=== PATIENT | male | born 1950 | race Caucasian/White ===

== ENCOUNTER 2016-12-08 13:39 | Inpatient (IN) | payer MEDICARE, OTHER ==
[~2016-12-08] VITALS: Ht 177.8 cm; Wt 118.4 kg
[~2016-12-08 13:39] MED LIST: BICALUTAMIDE50 MG PO; BP PILL; COMBIVENT1 AR1 IH; DELTASONE10 MG PO; DOXYCYCLINE100 M3 PO; GLIPIZIDE XL5 MG PO; GLIPIZIDE10 MG PO; HUMALOG100 U/ML SC; HYDROCHLOROTHIA25 M1 PO; HYDROCODONE BIT1 T11 PO; HYZAAR 12.5 MG-1 TAB PO; LANTUS100 U/ML SC; LIPITOR40 MG PO; LISINOPRIL10 M1 PO; LOPRESSOR50 MG PO; LOSARTAN POTASS1 TA9 PO; METFORMIN1000 MG PO; MOTRIN800 MG PO; NORVASC10 MG PO; OXYGEN NAS; PREDNISONE10 MG PO; PROAIR HFA0.09 MG/AC INH; SPIRIVA -- 3018 MCG INH; SUGAR PILL; SYMBICORT1 AE1 INH; VENTOLIN 02.5 MG/3 M INH; VIBRA-TAB100 M1 PO; XOPENEX0.63 MG NEB; ZITHROMAX Z-PA250 MG PO; ZYRTEC10 M1 PO; [UNRECOGNIZED DRUG - OTHER] DEVI; [UNRECOGNIZED DRUG - SUPPLY] DEVI
[2016-12-08 13:41] VITALS: BP 186/82
[2016-12-08 14:23] LABS: HEMATOCRIT 37.5 % (42.0-52.0); HEMOGLOBIN 12.6 g/dl (14.0-18.0); MEAN CELL VOLUME 84.5 fl (80.0-94.0); MEAN CORPUSCULAR HGB 28.4 pg (27.0-31.0); MEAN CORPUSCULAR HGB CONC 33.6 g/dl (33.0-37.0); MEAN PLATELET VOLUME 11.4 fl (9.6-12.3); PLATELET COUNT AUTOMATED 219 10*3/uL (130-400); RED BLOOD COUNT 4.44 10*6/uL (4.50-5.90); RED CELL DISTRI WIDTH 12.7 % (0-14.5); WHITE BLOOD COUNT 19.3 10*3/uL (4.8-10.8)
[2016-12-08 14:41] LABS: ALBUMIN 3.3 gm/dl (3.1-4.5); ALKALINE PHOSPHATASE 88 U/L (45-117); BILIRUBIN, TOTAL 0.5 mg/dl (0.2-1.0); BUN 13 mg/dl (7-24); CARBON DIOXIDE 30 mmol/L (21-32); CHLORIDE 89 mmol/L (98-107); EST GLOM FILT AFRICAN AMERICAN > 60 ml/min; GLUCOSE 345 mg/dL (65-99); MAGNESIUM 1.9 mg/dL (1.5-2.1); POTASSIUM 4.4 mmol/L (3.5-5.1); SGOT/AST 9 IU/L (3-35); SGPT/ALT 16 U/L (12-78); SODIUM 131 mmol/L (136-145); TOTAL PROTEIN 7.5 gm/dL (6.4-8.2)
[2016-12-08 14:43] LABS: TROPONIN I < 0.015 ng/ml (<0.045)
[2016-12-08 15:11] LABS: LYMPHOCYTE # 2.7 10*3/uL (1.3-4.4); MONOCYTE # 1.9 10*3/uL (0.1-1.0); NEUTROPHIL # 14.7 10*3/uL (2.3-7.9); NEUTROPHILS 76 % (47-73); TOTAL CELLS COUNTED 100 #CELLS
[2016-12-08 15:12] LABS: PLATELET SUFFICIENCY NORMAL (NORMAL)
[2016-12-08 15:15] VITALS: BP 154/76
[2016-12-08 15:55] VITALS: BP 127/73
[2016-12-08 16:53] VITALS: BP 153/79
[2016-12-08] MEDS ORDERED: LANTUS100 U/ML SC (17:52)
[2016-12-08 18:27] LABS: CKMB 1.1 ng/ml (0.5-3.6); CPK 107 U/L (39-308)
[2016-12-08 18:28] LABS: TROPONIN I < 0.015 ng/ml (<0.045)
[2016-12-08 20:00] VITALS: BP 153/74
[2016-12-09] VITALS: BP 170/79
[2016-12-09 00:26] LABS: CKMB 1.1 ng/ml (0.5-3.6); CPK 121 U/L (39-308)
[2016-12-09 00:37] LABS: TROPONIN I < 0.015 ng/ml (<0.045)
[2016-12-09 06:39] LABS: BASO # 0.1 10*3/uL (0.0-0.1); BASO % 0.9 % (0.0-1.0); EOS % 0.1 % (1.0-4.0); HEMATOCRIT 36.9 % (42.0-52.0); IG # 0.3 10*3/uL (0.0-0.1); LYMPH % 6.5 % (27.0-41.0); MEAN CELL VOLUME 86.4 fl (80.0-94.0); MEAN CORPUSCULAR HGB 28.1 pg (27.0-31.0); MEAN CORPUSCULAR HGB CONC 32.5 g/dl (33.0-37.0); MEAN PLATELET VOLUME 11.6 fl (9.6-12.3); MONO # 0.5 10*3/uL (0.1-1.0); MONO % 3.2 % (3.0-9.0); NEUT % 87.4 % (47.0-73.0); PLATELET COUNT AUTOMATED 213 10*3/uL (130-400); RED BLOOD COUNT 4.27 10*6/uL (4.50-5.90); RED CELL DISTRI WIDTH 12.5 % (0-14.5); WHITE BLOOD COUNT 14.9 10*3/uL (4.8-10.8)
[2016-12-09 06:47] LABS: CKMB 1.6 ng/ml (0.5-3.6); CPK 134 U/L (39-308)
[2016-12-09 06:59] LABS: TROPONIN I < 0.015 ng/ml (<0.045)
[2016-12-09 07:02] LABS: BUN 14 mg/dl (7-24); CARBON DIOXIDE 24 mmol/L (21-32); CHLORIDE 95 mmol/L (98-107); EST GLOM FILT AFRICAN AMERICAN > 60 ml/min; GLUCOSE 394 mg/dL (65-99); MAGNESIUM 2.1 mg/dL (1.5-2.1); PHOSPHOROUS 3.2 mg/dL (2.5-4.9); POTASSIUM 4.6 mmol/L (3.5-5.1); SODIUM 135 mmol/L (136-145)
[2016-12-09 07:05] LABS: INTERNATIONAL NORM RATIO 1.1 (2.0-3.5); PROTHROMBIN TIME 11.2 SECONDS (9.0-12.4)
[2016-12-09 12:00] VITALS: BP 136/66
[2016-12-09 16:00] VITALS: BP 168/80
[2016-12-09 20:00] VITALS: BP 158/66
[2016-12-10] VITALS: BP 160/73
[2016-12-10 08:00] VITALS: BP 158/76
[2016-12-10] MEDS ORDERED: OXYGEN NAS (10:35)
[2016-12-10] MEDS ORDERED: PREDNISONE50 MG PO (11:43)
[2016-12-10] MEDS ORDERED: LEVAQUIN500 M2 PO (11:43)
[2016-12-10 12:00] VITALS: BP 142/82
== END 2016-12-10 12:45 | disposition home or self-care (01) | DRG 871 ==
LOC: ED 13:39 → 4E 15:42 → EDHOLD 15:42 → 4E 16:32
PROVIDERS: Internal Medicine; Nurse Practitioner Family
DX: A41.9 Sepsis, unspecified organism (principal); J96.01 Acute respiratory failure with hypoxia; J18.9 Pneumonia, unspecified organism; J44.1 Chronic obstructive pulmonary disease with (acute) exacerbation; E87.1 Hypo-osmolality and hyponatremia; R65.20 Severe sepsis without septic shock; E78.5 Hyperlipidemia, unspecified; Z87.891 Personal history of nicotine dependence; Z82.49 Family history of ischemic heart disease and other diseases of the circulatory system; Z88.0 Allergy status to penicillin; I16.0 Hypertensive urgency; E11.65 Type 2 diabetes mellitus with hyperglycemia

== ENCOUNTER 2016-12-13 03:24 | Inpatient (IN) | payer MEDICARE, OTHER ==
[~2016-12-13] VITALS: Ht 177.8 cm; Wt 113.9 kg
[2016-12-13] VITALS (15 sets, daily range): BP systolic 131–187; BP diastolic 67–108
--- NOTE | ~2016-12-13 | EKG ---
[place], [place] ELECTROCARDIOGRAM REPORT NAME: BEV JONES UNIT #: [id number] ROOM: 425 DOCTOR: SARAY SHEFFIELD MD BIRTHDATE: [birth year] DOS: 12/13/2016 TIME: 0458 hours. FINDINGS: 1. Sinus rhythm at rate of 85. 2. Nonspecific T-wave flattening. 3. Abnormal EKG. SARAY SHEFFIELD MD CM:EKGRPT:ELECTROCARDIOGRAM REPORT 1935 09 SARAY SHEFFIELD MD
--- NOTE | ~2016-12-13 | O ---
[place], [place] OPERATIVE NOTE NAME: [id number] UNIT #: [id number] ROOM: 425 DOCTOR: MORTEZA DEVINE MD BIRTHDATE: [birth year] DOS: 12/13/2016 PREOPERATIVE DIAGNOSIS: Acute appendicitis. POSTOPERATIVE DIAGNOSIS: Acute appendicitis. PROCEDURE: Laparoscopic appendectomy. SURGEON: Morteza Devine MD SESSIONS CLERK: ASHLEY. ANESTHESIA: General with endotracheal intubation. INDICATIONS: This is a 66-year-old gentleman who was admitted from the Emergency Room with a history of right lower quadrant abdominal pain. A CAT scan revealed acute appendicitis. It was decided to take the patient to the operating room for a laparoscopic, possible open appendectomy. The procedure and its complications were explained to the patient in detail preoperatively. Complications that were discussed included but were not limited to bleeding, infection, hematoma/seroma/abscess formation, damage to underlying vital structures and incisional hernia formation. He agreed to proceed. DESCRIPTION OF PROCEDURE: After identifying the patient, the patient was brought to the operating suite and laid in the supine position. After induction of general anesthesia, a Dimas catheter was inserted into the urinary bladder and the left upper extremity was stuck to the patient's side. Parts were then painted and draped in the usual sterile fashion. A time-out procedure was called, an umbilical incision of approximately 10 mm was made. The skin and the subcutaneous tissue were incised. The umbilical fascia was freed off from preperitoneal fat and 2 stay sutures were taken with 0 Vicryl. The peritoneum was entered and with the help of direct vision, a left lower quadrant incision of 10 mm and 5 mm incisions were made in the suprapubic region and appropriate size ports were introduced. The patient was placed in a Trendelenburg, right side up position. The appendix was found to be acutely inflamed. It was held up with the help of an Endo Ada forceps and the mesoappendix as well as the base of the appendix was stapled across with the help of an Endo-PENNIE vascular stapler. The appendix was then placed in the EndoCatch bag and removed from the peritoneal cavity and sent for histopathological diagnosis. Hemostasis was confirmed and copious amounts of saline was used for irrigation in the right lower quadrant to suck out all the blood and the fluid. After hemostasis was confirmed, the suprapubic and the left lower quadrant ports were removed, and there was no bleeding seen. The umbilical port was also removed and additional [id number] stitch was taken with the help of 0 Vicryl to close the umbilical fascial defect. The stay sutures were tied together as well. At this point, local anesthesia (1% plain lidocaine was injected). All the skin edges were then approximated with the help of 4-0 Vicryl in a subcuticular running fashion. Dressings were placed. Dimas catheter was removed. The patient was extubated uneventfully and brought back to the recovery room in stable fashion. There were no complications. Dr. Morteza Devine, the attending surgeon, was present [place], [place] OPERATIVE NOTE NAME: BEV JONES UNIT #: [id number] ROOM: [facility] DOCTOR: MORTEZA DEVINE MD BIRTHDATE: [birth year] throughout the operating case. Morteza Devine MD CM:OPRECORD:OPERATIVE NOTE [id number] MORTEZA DEVINE MD 12/13/16 1012 interface
[~2016-12-13 03:24] MED LIST changes: +LEVAQUIN500 M2 PO; +PREDNISONE50 MG PO
[2016-12-13 04:12] LABS: HEMATOCRIT 40.9 % (42.0-52.0); HEMOGLOBIN 13.6 g/dl (14.0-18.0); MEAN CELL VOLUME 84.9 fl (80.0-94.0); MEAN CORPUSCULAR HGB 28.2 pg (27.0-31.0); MEAN CORPUSCULAR HGB CONC 33.3 g/dl (33.0-37.0); MEAN PLATELET VOLUME 10.4 fl (9.6-12.3); NUCLEATED RED BLOOD CELL 0.1 10*3/uL (0.0-0.0); NUCLEATED RED BLOOD CELL 0.2 % (0.0-0.0); PLATELET COUNT AUTOMATED 284 10*3/uL (130-400); RED BLOOD COUNT 4.82 10*6/uL (4.50-5.90); RED CELL DISTRI WIDTH 12.7 % (0-14.5); WHITE BLOOD COUNT 25.4 10*3/uL (4.8-10.8)
[2016-12-13 04:21] LABS: INTERNATIONAL NORM RATIO 1.1 (2.0-3.5); PROTHROMBIN TIME 11.4 SECONDS (9.0-12.4)
[2016-12-13 04:29] LABS: ALBUMIN 3.3 gm/dl (3.1-4.5); ALKALINE PHOSPHATASE 74 U/L (45-117); BILIRUBIN, TOTAL 0.3 mg/dl (0.2-1.0); BUN 20 mg/dl (7-24); CARBON DIOXIDE 32 mmol/L (21-32); CHLORIDE 94 mmol/L (98-107); EST GLOM FILT AFRICAN AMERICAN > 60 ml/min; GLUCOSE 191 mg/dL (65-99); POTASSIUM 3.3 mmol/L (3.5-5.1); SGOT/AST 16 IU/L (3-35); SGPT/ALT 38 U/L (12-78); SODIUM 138 mmol/L (136-145); TOTAL PROTEIN 6.9 gm/dL (6.4-8.2)
[2016-12-13 04:34] LABS: ATYPICAL LYMPHS 1 % (0-0); EOSINOPHIL # 0.8 10*3/uL (0-0.4); EOSINOPHILS 3 % (1-4); LYMPHOCYTE # 4.1 10*3/uL (1.3-4.4); METAMYELOCYTES 1 % (0-0); MYELOCYTES 1 % (0-0); NEUTROPHILS 71 % (47-73); PLATELET SUFFICIENCY NORMAL (NORMAL); POLYCHROMASIA SLIGHT; TOTAL CELLS COUNTED 100 #CELLS
[2016-12-13 04:35] LABS: TROPONIN I < 0.015 ng/ml (<0.045)
[2016-12-13 05:13] LABS: BILIRUBIN NEGATIVE (NEGATIVE); BLOOD NEGATIVE (NEGATIVE); CLARITY CLEAR (CLEAR); COLOR YELLOW (YELLOW); GLUCOSE NEGATIVE (NEGATIVE); KETONE NEGATIVE (NEGATIVE); LEUKO ESTERASE NEGATIVE (NEGATIVE); NITRITE NEGATIVE (NEGATIVE); PH 6.5 (5.0-9.0); PROTEIN NEGATIVE (NEGATIVE); SPECIFIC GRAVITY <= 1.005 (1.005-1.030); UROBILINOGEN 0.2 E.U./dl (0.2-1.0)
[2016-12-13 05:20] LABS: BACTERIA TRACE; EPITHELIAL CELLS 0-2; URINE REFLEX COMMENT NO (NO)
[2016-12-14] VITALS: BP 145/80
[2016-12-14 06:15] LABS: HEMATOCRIT 40.3 % (42.0-52.0); HEMOGLOBIN 13.1 g/dl (14.0-18.0); MEAN CELL VOLUME 87.4 fl (80.0-94.0); MEAN CORPUSCULAR HGB 28.4 pg (27.0-31.0); MEAN CORPUSCULAR HGB CONC 32.5 g/dl (33.0-37.0); MEAN PLATELET VOLUME 10.2 fl (9.6-12.3); PLATELET COUNT AUTOMATED 282 10*3/uL (130-400); RED BLOOD COUNT 4.61 10*6/uL (4.50-5.90); RED CELL DISTRI WIDTH 13.2 % (0-14.5); WHITE BLOOD COUNT 19.5 10*3/uL (4.8-10.8)
[2016-12-14 06:50] LABS: BUN 11 mg/dl (7-24); CARBON DIOXIDE 33 mmol/L (21-32); CHLORIDE 101 mmol/L (98-107); EST GLOM FILT AFRICAN AMERICAN > 60 ml/min; GLUCOSE 80 mg/dL (65-99); POTASSIUM 3.7 mmol/L (3.5-5.1); SODIUM 142 mmol/L (136-145)
[2016-12-14 07:15] LABS: EOSINOPHIL # 0.6 10*3/uL (0-0.4); EOSINOPHILS 3 % (1-4); LYMPHOCYTE # 4.1 10*3/uL (1.3-4.4); METAMYELOCYTES 1 % (0-0); MONOCYTE # 0.4 10*3/uL (0.1-1.0); MYELOCYTES 4 % (0-0); NEUTROPHIL # 13.5 10*3/uL (2.3-7.9); NEUTROPHILS 69 % (47-73); PLATELET SUFFICIENCY NORMAL (NORMAL); TOTAL CELLS COUNTED 100 #CELLS
[2016-12-14 08:00] VITALS: BP 162/74
[2016-12-14 12:00] VITALS: BP 173/80
[2016-12-14] MEDS ORDERED: PERCOCET 325 MG1 TA2 PO (12:21)
[2016-12-14] MEDS ORDERED: FLAGYL500 MG PO (12:23)
[2016-12-14] MEDS ORDERED: CIPRO500 MG PO (12:23)
== END 2016-12-14 13:28 | disposition home or self-care (01) | DRG 854 ==
LOC: ED 03:24 → 4E 06:26 → EDHOLD 06:26 → 4E 06:36
PROVIDERS: Emergency Medicine Emergency Medical Services; Internal Medicine
PROC: 0DTJ4ZZ Resection of Appendix, Percutaneous Endoscopic Approach (ICD-10-PCS; principal; 2016-12-13)
DX: A41.9 Sepsis, unspecified organism (principal); J96.10 Chronic respiratory failure, unspecified whether with hypoxia or hypercapnia; E11.65 Type 2 diabetes mellitus with hyperglycemia; J44.1 Chronic obstructive pulmonary disease with (acute) exacerbation; K35.80 Unspecified acute appendicitis; E87.6 Hypokalemia; I10 Essential (primary) hypertension; M19.91 Primary osteoarthritis, unspecified site; E78.5 Hyperlipidemia, unspecified; Z87.891 Personal history of nicotine dependence; Z82.5 Family history of asthma and other chronic lower respiratory diseases; Z82.49 Family history of ischemic heart disease and other diseases of the circulatory system; Z81.1 Family history of alcohol abuse and dependence; Z88.0 Allergy status to penicillin; Z83.3 Family history of diabetes mellitus; Z79.4 Long term (current) use of insulin; Z79.2 Long term (current) use of antibiotics; Z79.899 Other long term (current) drug therapy; Z87.01 Personal history of pneumonia (recurrent)

== ENCOUNTER 2017-03-08 13:26 | Emergency (ER) | payer MEDICARE, OTHER ==
[~2017-03-08] VITALS: Ht 177.8 cm; Wt 117.9 kg
[~2017-03-08 13:26] MED LIST changes: +CIPRO500 MG PO; +FLAGYL500 MG PO; +PERCOCET 325 MG1 TA2 PO
[2017-03-08] MEDS ORDERED: VITAMIN D1000 IU PO (13:34)
[2017-03-08 14:28] LABS: BASO # 0.1 10*3/uL (0.0-0.1); BASO % 1.2 % (0.0-1.0); EOS # 0.5 10*3/uL (0.0-0.4); EOS % 5.1 % (1.0-4.0); HEMATOCRIT 41.8 % (42.0-52.0); LYMPH # 2.2 10*3/uL (1.3-4.4); LYMPH % 21.4 % (27.0-41.0); MEAN CELL VOLUME 84.8 fl (80.0-94.0); MEAN CORPUSCULAR HGB 28.4 pg (27.0-31.0); MEAN CORPUSCULAR HGB CONC 33.5 g/dl (33.0-37.0); MEAN PLATELET VOLUME 11.5 fl (9.6-12.3); MONO # 0.9 10*3/uL (0.1-1.0); MONO % 8.9 % (3.0-9.0); NEUT # 6.6 10*3/uL (2.3-7.9); PLATELET COUNT AUTOMATED 166 10*3/uL (130-400); RED BLOOD COUNT 4.93 10*6/uL (4.50-5.90); RED CELL DISTRI WIDTH 13.5 % (0-14.5); WHITE BLOOD COUNT 10.5 10*3/uL (4.8-10.8)
[2017-03-08 14:35] LABS: PROTHROMBIN TIME 10.5 SECONDS (9.0-12.4)
[2017-03-08 14:49] LABS: ALBUMIN 3.6 gm/dl (3.1-4.5); ALKALINE PHOSPHATASE 76 U/L (45-117); BILIRUBIN, TOTAL 0.2 mg/dl (0.2-1.0); BUN 13 mg/dl (7-24); CARBON DIOXIDE 26 mmol/L (21-32); CHLORIDE 97 mmol/L (98-107); CPK 110 U/L (39-308); EST GLOM FILT AFRICAN AMERICAN > 60 ml/min; GLUCOSE 195 mg/dL (65-99); MAGNESIUM 1.7 mg/dL (1.5-2.1); POTASSIUM 3.7 mmol/L (3.5-5.1); SGOT/AST 20 IU/L (3-35); SGPT/ALT 37 U/L (12-78); SODIUM 134 mmol/L (136-145); TOTAL PROTEIN 7.3 gm/dL (6.4-8.2)
[2017-03-08 14:50] LABS: CKMB 1.7 ng/ml (0.5-3.6); TROPONIN I < 0.015 ng/ml (<0.045)
[2017-03-08] MEDS ORDERED: LEVAQUIN750 M1 PO (15:33)
[2017-03-08] MEDS ORDERED: PREDNISONE10 MG PO (15:33)
[2017-03-08 16:25] LABS: LA>2 REFLEX 2 HR DRAW NOW
== END 2017-03-08 16:01 | disposition home or self-care (01) ==
LOC: ED 13:26
PROVIDERS: Internal Medicine
DX: J20.9 Acute bronchitis, unspecified (principal); I10 Essential (primary) hypertension; E11.9 Type 2 diabetes mellitus without complications; J44.9 Chronic obstructive pulmonary disease, unspecified; E78.5 Hyperlipidemia, unspecified; M19.90 Unspecified osteoarthritis, unspecified site; Z88.0 Allergy status to penicillin; Z79.899 Other long term (current) drug therapy; Z79.4 Long term (current) use of insulin; Z87.891 Personal history of nicotine dependence

== ENCOUNTER → 2017-04-13 | Outpatient (CLI) | payer MEDICARE, OTHER ==
[~2017-04-13] MED LIST changes: +LEVAQUIN750 M1 PO; +VITAMIN D1000 IU PO
== END | disposition home or self-care (01) ==
LOC: CT 10:40
DX: C61 Malignant neoplasm of prostate (principal)

== ENCOUNTER → 2017-04-15 | Outpatient (CLI) | payer MEDICARE, OTHER | END | disposition home or self-care (01) | LOC: NM 09:53 | DX: C61 Malignant neoplasm of prostate (principal); M19.012 Primary osteoarthritis, left shoulder; M19.011 Primary osteoarthritis, right shoulder; M17.0 Bilateral primary osteoarthritis of knee; M19.072 Primary osteoarthritis, left ankle and foot; M19.071 Primary osteoarthritis, right ankle and foot ==

== ENCOUNTER 2017-04-30 17:32 | Emergency (ER) | payer MEDICARE, OTHER ==
[~2017-04-30] VITALS: Ht 177.8 cm; Wt 117.9 kg
--- NOTE | ~2017-04-30 | EKG ---
[place], [place] ELECTROCARDIOGRAM REPORT NAME: BEV JONES UNIT #: [id number] ROOM: DOCTOR: SULMA DAVID MD,MARY BIRTHDATE: [birth year] DOS: 04/30/2017 DATE: 04/30/2017 at 1755 minutes. The underlying rhythm was noted as normal sinus rhythm for the patient with heart rate of 99 beats per minute. Nonspecific ST-T changes noted mainly in the V1, V2 and V3. There were no changes of acute ischemia noted. MARY OZUNA MD CM:EKGRPT:ELECTROCARDIOGRAM REPORT [id number] 0629 MARY DAVID MD
[2017-04-30 18:06] LABS: BASO # 0.1 10*3/uL (0.0-0.1); BASO % 1.3 % (0.0-1.0); EOS # 0.4 10*3/uL (0.0-0.4); EOS % 3.8 % (1.0-4.0); HEMATOCRIT 42.2 % (42.0-52.0); HEMOGLOBIN 14.1 g/dl (14.0-18.0); LYMPH # 2.7 10*3/uL (1.3-4.4); LYMPH % 24.5 % (27.0-41.0); MEAN CELL VOLUME 85.8 fl (80.0-94.0); MEAN CORPUSCULAR HGB 28.7 pg (27.0-31.0); MEAN CORPUSCULAR HGB CONC 33.4 g/dl (33.0-37.0); MONO # 0.9 10*3/uL (0.1-1.0); MONO % 8.4 % (3.0-9.0); NEUT # 6.7 10*3/uL (2.3-7.9); NEUT % 61.5 % (47.0-73.0); PLATELET COUNT AUTOMATED 160 10*3/uL (130-400); RED BLOOD COUNT 4.92 10*6/uL (4.50-5.90); RED CELL DISTRI WIDTH 13.3 % (0-14.5); WHITE BLOOD COUNT 10.8 10*3/uL (4.8-10.8)
[2017-04-30 18:21] LABS: ALBUMIN 3.6 gm/dl (3.1-4.5); ALKALINE PHOSPHATASE 73 U/L (45-117); BUN 16 mg/dl (7-24); CHLORIDE 94 mmol/L (98-107); CKMB 1.3 ng/ml (0.5-3.6); CPK 77 U/L (39-308); LIPASE 131 U/L (73-393); MAGNESIUM 1.7 mg/dL (1.5-2.1); POTASSIUM 4.2 mmol/L (3.5-5.1); SGOT/AST 18 IU/L (3-35); SGPT/ALT 35 U/L (12-78); SODIUM 133 mmol/L (136-145); TOTAL PROTEIN 7.1 gm/dL (6.4-8.2)
[2017-04-30 18:22] LABS: TROPONIN I < 0.015 ng/ml (<0.045)
[2017-04-30] MEDS ORDERED: LEVAQUIN750 M1 PO (18:39)
[2017-04-30] MEDS ORDERED: PREDNISONE10 MG PO (18:39)
== END 2017-04-30 19:10 | disposition home or self-care (01) ==
LOC: ED 17:32
PROVIDERS: Emergency Medicine
DX: J44.1 Chronic obstructive pulmonary disease with (acute) exacerbation (principal); E11.9 Type 2 diabetes mellitus without complications; E78.5 Hyperlipidemia, unspecified; I10 Essential (primary) hypertension; M19.90 Unspecified osteoarthritis, unspecified site; Z85.46 Personal history of malignant neoplasm of prostate; Z98.890 Other specified postprocedural states; Z90.49 Acquired absence of other specified parts of digestive tract; Z79.899 Other long term (current) drug therapy; Z88.0 Allergy status to penicillin; Z99.81 Dependence on supplemental oxygen

== ENCOUNTER → 2017-06-04 | Outpatient (CLI) | payer MEDICARE, OTHER | END | disposition home or self-care (01) | LOC: CARD 09:17 | DX: J43.9 Emphysema, unspecified (principal); Z87.891 Personal history of nicotine dependence ==

== ENCOUNTER 2017-07-31 11:23 | Emergency (ER) | payer MEDICARE, OTHER ==
[~2017-07-31] VITALS: Ht 177.8 cm; Wt 117.9 kg
[2017-07-31 12:28] LABS: BASO # 0.1 10*3/uL (0.0-0.1); BASO % 0.8 % (0.0-1.0); EOS # 0.4 10*3/uL (0.0-0.4); HEMATOCRIT 38.5 % (42.0-52.0); LYMPH # 1.9 10*3/uL (1.3-4.4); MEAN CELL VOLUME 84.1 fl (80.0-94.0); MEAN CORPUSCULAR HGB 28.4 pg (27.0-31.0); MEAN CORPUSCULAR HGB CONC 33.8 g/dl (33.0-37.0); MEAN PLATELET VOLUME 10.9 fl (9.6-12.3); MONO % 7.7 % (3.0-9.0); NEUT % 73.2 % (47.0-73.0); PLATELET COUNT AUTOMATED 211 10*3/uL (130-400); RED BLOOD COUNT 4.58 10*6/uL (4.50-5.90); RED CELL DISTRI WIDTH 13.3 % (0-14.5); WHITE BLOOD COUNT 12.3 10*3/uL (4.8-10.8)
[2017-07-31 12:37] LABS: ACT PARTIAL THROMBO TIME 26.1 SECONDS (20.8-31.5)
[2017-07-31 12:44] LABS: ALBUMIN 3.6 gm/dl (3.1-4.5); ALKALINE PHOSPHATASE 83 U/L (45-117); BUN 12 mg/dl (7-24); CHLORIDE 96 mmol/L (98-107); CREATININE 0.92 mg/dL (0.70-1.30); LIPASE 134 U/L (73-393); POTASSIUM 4.2 mmol/L (3.5-5.1); SGOT/AST 20 IU/L (3-35); SGPT/ALT 35 U/L (12-78); SODIUM 131 mmol/L (136-145); TOTAL PROTEIN 7.1 gm/dL (6.4-8.2)
[2017-07-31 12:50] LABS: TROPONIN I < 0.015 ng/ml (<0.045)
[2017-07-31] MEDS ORDERED: ZITHROMAX250 MG PO (13:44)
[2017-07-31] MEDS ORDERED: PREDNISONE10 MG PO (13:44)
== END 2017-07-31 13:48 | disposition home or self-care (01) ==
LOC: ED 11:23
PROVIDERS: Emergency Medicine
DX: J20.9 Acute bronchitis, unspecified (principal); J44.1 Chronic obstructive pulmonary disease with (acute) exacerbation; E11.9 Type 2 diabetes mellitus without complications; I10 Essential (primary) hypertension; M19.90 Unspecified osteoarthritis, unspecified site; Z88.0 Allergy status to penicillin; Z79.899 Other long term (current) drug therapy; Z79.4 Long term (current) use of insulin; E78.5 Hyperlipidemia, unspecified; Z87.891 Personal history of nicotine dependence

== ENCOUNTER 2017-12-14 20:15 | Emergency (ER) | payer MEDICARE, OTHER ==
[~2017-12-14] VITALS: Ht 177.8 cm; Wt 115.2 kg
[~2017-12-14 20:15] MED LIST changes: +ZITHROMAX250 MG PO
== END 2017-12-14 22:30 | disposition home or self-care (01) ==
LOC: ED 20:15
DX: S83.91XA Sprain of unspecified site of right knee, initial encounter (principal); Z88.0 Allergy status to penicillin; Z79.899 Other long term (current) drug therapy; Z87.891 Personal history of nicotine dependence; X58.XXXA Exposure to other specified factors, initial encounter; Y93.01 Activity, walking, marching and hiking; Y92.89 Other specified places as the place of occurrence of the external cause; Y99.8 Other external cause status

== ENCOUNTER 2018-02-27 15:21 | Emergency (ER) | payer MEDICARE, OTHER ==
[~2018-02-27] VITALS: Ht 177.8 cm; Wt 117.9 kg
[2018-02-27 15:46] LABS: BASO # 0.1 10*3/uL (0.0-0.1); BASO % 0.9 % (0.0-1.0); EOS # 0.6 10*3/uL (0.0-0.4); EOS % 5.1 % (1.0-4.0); HEMATOCRIT 38.7 % (42.0-52.0); HEMOGLOBIN 12.4 g/dl (14.0-18.0); LYMPH # 2.2 10*3/uL (1.3-4.4); LYMPH % 20.5 % (27.0-41.0); MEAN CELL VOLUME 88.2 fl (80.0-94.0); MEAN CORPUSCULAR HGB 28.2 pg (27.0-31.0); MEAN PLATELET VOLUME 11.3 fl (9.6-12.3); MONO # 1.1 10*3/uL (0.1-1.0); MONO % 9.8 % (3.0-9.0); NEUT # 6.9 10*3/uL (2.3-7.9); NEUT % 63.2 % (47.0-73.0); PLATELET COUNT AUTOMATED 160 10*3/uL (130-400); RED BLOOD COUNT 4.39 10*6/uL (4.50-5.90); RED CELL DISTRI WIDTH 13.7 % (0-14.5); WHITE BLOOD COUNT 10.9 10*3/uL (4.8-10.8)
[2018-02-27 15:55] LABS: ACT PARTIAL THROMBO TIME 22.9 SECONDS (20.8-31.5)
[2018-02-27 16:02] LABS: ALBUMIN 3.5 gm/dl (3.1-4.5); ALKALINE PHOSPHATASE 57 U/L (45-117); BUN 19 mg/dl (7-24); CHLORIDE 99 mmol/L (98-107); CREATININE 0.83 mg/dL (0.70-1.30); LIPASE 114 U/L (73-393); POTASSIUM 3.9 mmol/L (3.5-5.1); SGOT/AST 16 IU/L (3-35); SGPT/ALT 29 U/L (12-78); SODIUM 138 mmol/L (136-145); TOTAL PROTEIN 6.5 gm/dL (6.4-8.2); TROPONIN I < 0.015 ng/ml (<0.045)
[2018-02-27] MEDS ORDERED: ZITHROMAX250 MG PO (16:27)
[2018-02-27] MEDS ORDERED: PREDNISONE10 MG PO (16:27)
== END 2018-02-27 16:37 | disposition home or self-care (01) ==
LOC: ED 15:21
PROVIDERS: Emergency Medicine
DX: J20.9 Acute bronchitis, unspecified (principal); J44.1 Chronic obstructive pulmonary disease with (acute) exacerbation; E11.9 Type 2 diabetes mellitus without complications; E78.5 Hyperlipidemia, unspecified; I10 Essential (primary) hypertension; M19.90 Unspecified osteoarthritis, unspecified site; Z87.891 Personal history of nicotine dependence; Z88.0 Allergy status to penicillin; Z79.899 Other long term (current) drug therapy; Z79.4 Long term (current) use of insulin

== ENCOUNTER 2018-04-22 19:08 | Inpatient (IN) | payer MEDICARE, OTHER ==
[~2018-04-22] VITALS: Ht 177.8 cm; Wt 121.3 kg
--- NOTE | ~2018-04-22 | EKG ---
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
--- NOTE | ~2018-04-22 | EKG ---
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
[~2018-04-22 19:08] MED LIST changes: +LANTUS SOL100 UNIT/1 SC
[2018-04-22 19:16] VITALS: BP 190/79
[2018-04-22 19:47] LABS: BASO # 0.2 10*3/uL (0.0-0.1); BASO % 1.6 % (0.0-1.0); EOS # 0.9 10*3/uL (0.0-0.4); EOS % 8.2 % (1.0-4.0); HEMATOCRIT 40.1 % (42.0-52.0); HEMOGLOBIN 13.1 g/dl (14.0-18.0); LYMPH % 17.5 % (27.0-41.0); MEAN CELL VOLUME 85.3 fl (80.0-94.0); MEAN CORPUSCULAR HGB 27.9 pg (27.0-31.0); MEAN CORPUSCULAR HGB CONC 32.7 g/dl (33.0-37.0); MEAN PLATELET VOLUME 11.3 fl (9.6-12.3); MONO # 0.8 10*3/uL (0.1-1.0); NEUT # 7.4 10*3/uL (2.3-7.9); NEUT % 65.3 % (47.0-73.0); PLATELET COUNT AUTOMATED 212 10*3/uL (130-400); RED CELL DISTRI WIDTH 13.4 % (0-14.5); WHITE BLOOD COUNT 11.3 10*3/uL (4.8-10.8)
[2018-04-22 20:05] LABS: ALBUMIN 3.6 gm/dl (3.1-4.5); ALKALINE PHOSPHATASE 65 U/L (45-117); BUN 11 mg/dl (7-24); CHLORIDE 95 mmol/L (98-107); CREATININE 0.92 mg/dL (0.70-1.30); POTASSIUM 3.9 mmol/L (3.5-5.1); SGOT/AST 21 IU/L (3-35); SGPT/ALT 32 U/L (12-78); SODIUM 133 mmol/L (136-145); TOTAL PROTEIN 6.9 gm/dL (6.4-8.2)
[2018-04-22 20:08] LABS: TROPONIN I < 0.015 ng/ml (<0.045)
[2018-04-22 20:11] VITALS: BP 145/83
[2018-04-23] VITALS: BP 146/89
[2018-04-23 06:17] LABS: BASO # 0.1 10*3/uL (0.0-0.1); BASO % 0.8 % (0.0-1.0); EOS % 0.3 % (1.0-4.0); HEMATOCRIT 40.2 % (42.0-52.0); HEMOGLOBIN 12.8 g/dl (14.0-18.0); LYMPH # 0.9 10*3/uL (1.3-4.4); LYMPH % 7.7 % (27.0-41.0); MEAN CELL VOLUME 87.6 fl (80.0-94.0); MEAN CORPUSCULAR HGB 27.9 pg (27.0-31.0); MEAN CORPUSCULAR HGB CONC 31.8 g/dl (33.0-37.0); MEAN PLATELET VOLUME 11.7 fl (9.6-12.3); MONO # 0.2 10*3/uL (0.1-1.0); MONO % 1.7 % (3.0-9.0); NEUT # 9.8 10*3/uL (2.3-7.9); NEUT % 88.5 % (47.0-73.0); PLATELET COUNT AUTOMATED 200 10*3/uL (130-400); RED BLOOD COUNT 4.59 10*6/uL (4.50-5.90); RED CELL DISTRI WIDTH 13.4 % (0-14.5); WHITE BLOOD COUNT 11.1 10*3/uL (4.8-10.8)
[2018-04-23 06:24] LABS: ACT PARTIAL THROMBO TIME 26.5 SECONDS (20.8-31.5)
[2018-04-23 06:33] LABS: ALBUMIN 3.5 gm/dl (3.1-4.5); BUN 13 mg/dl (7-24); CHLORIDE 95 mmol/L (98-107); POTASSIUM 4.6 mmol/L (3.5-5.1); SODIUM 131 mmol/L (136-145)
[2018-04-23 06:40] LABS: ALKALINE PHOSPHATASE 66 U/L (45-117); CHOLESTEROL 124 mg/dL (<200); CREATININE 0.91 mg/dL (0.70-1.30); HDL CHOLESTEROL 57 mg/dl (40-60); LDL CHOLESTEROL 58 mg/dL (9-159); PHOSPHOROUS 2.7 mg/dL (2.5-4.9); SGOT/AST 13 IU/L (3-35); SGPT/ALT 30 U/L (12-78); THYROID STIM HORMONE (HS) 0.463 uIU/ml (0.358-4.75); TOTAL PROTEIN 6.8 gm/dL (6.4-8.2); TRIGLYCERIDES 46 mg/dl (<150); VLDL CHOLESTEROL 9 mg/dL (6-40)
[2018-04-23 06:59] LABS: VITAMIN D, 25-HYDROXY 23.5 ng/mL (30-100)
[2018-04-23 08:00] VITALS: BP 156/92
[2018-04-23 12:00] VITALS: BP 183/83
[2018-04-23] MEDS ORDERED: GLIPIZIDE5 MG PO (12:07)
[2018-04-23] MEDS ORDERED: DALIRESP500 MC1 PO (12:07)
[2018-04-23] MEDS ORDERED: HUMALOG100 UNIT/1 SQ (14:37)
[2018-04-23 16:00] VITALS: BP 141/63; BP 175/77
[2018-04-23 20:00] VITALS: BP 159/81
[2018-04-23 20:51] VITALS: BP 148/80
[2018-04-24] VITALS: BP 147/83
[2018-04-24 05:55] LABS: BUN 14 mg/dl (7-24); CHLORIDE 91 mmol/L (98-107); CREATININE 0.96 mg/dL (0.70-1.30); POTASSIUM 4.2 mmol/L (3.5-5.1); SODIUM 131 mmol/L (136-145)
[2018-04-24 05:59] LABS: HEMATOCRIT 38.2 % (42.0-52.0); HEMOGLOBIN 12.7 g/dl (14.0-18.0); MEAN CELL VOLUME 85.5 fl (80.0-94.0); MEAN CORPUSCULAR HGB 28.4 pg (27.0-31.0); MEAN CORPUSCULAR HGB CONC 33.2 g/dl (33.0-37.0); MEAN PLATELET VOLUME 11.3 fl (9.6-12.3); PLATELET COUNT AUTOMATED 217 10*3/uL (130-400); RED BLOOD COUNT 4.47 10*6/uL (4.50-5.90); RED CELL DISTRI WIDTH 13.4 % (0-14.5); WHITE BLOOD COUNT 20.1 10*3/uL (4.8-10.8)
[2018-04-24 06:53] LABS: PLATELET SUFFICIENCY NORMAL (NORMAL); TOTAL CELLS COUNTED 100 #CELLS
[2018-04-24 08:00] VITALS: BP 144/88
[2018-04-24 12:00] VITALS: BP 156/73
[2018-04-24 16:00] VITALS: BP 161/79
[2018-04-24 20:00] VITALS: BP 149/85
[2018-04-25 00:31] VITALS: BP 144/73
[2018-04-25 06:25] LABS: BASO % 0.2 % (0.0-1.0); EOS % 0.1 % (1.0-4.0); HEMATOCRIT 40.4 % (42.0-52.0); HEMOGLOBIN 13.2 g/dl (14.0-18.0); LYMPH # 0.9 10*3/uL (1.3-4.4); LYMPH % 5.7 % (27.0-41.0); MEAN CELL VOLUME 86.3 fl (80.0-94.0); MEAN CORPUSCULAR HGB 28.2 pg (27.0-31.0); MEAN CORPUSCULAR HGB CONC 32.7 g/dl (33.0-37.0); MEAN PLATELET VOLUME 11.3 fl (9.6-12.3); MONO # 0.9 10*3/uL (0.1-1.0); MONO % 5.3 % (3.0-9.0); NEUT # 14.3 10*3/uL (2.3-7.9); NEUT % 87.7 % (47.0-73.0); PLATELET COUNT AUTOMATED 220 10*3/uL (130-400); RED BLOOD COUNT 4.68 10*6/uL (4.50-5.90); RED CELL DISTRI WIDTH 13.5 % (0-14.5); WHITE BLOOD COUNT 16.3 10*3/uL (4.8-10.8)
[2018-04-25 06:33] LABS: BUN 16 mg/dl (7-24); CHLORIDE 91 mmol/L (98-107); CREATININE 0.85 mg/dL (0.70-1.30); POTASSIUM 4.3 mmol/L (3.5-5.1); SODIUM 129 mmol/L (136-145)
[2018-04-25 08:00] VITALS: BP 168/86
[2018-04-25 08:25] VITALS: BP 162/78
[2018-04-25] MEDS ORDERED: LEVAQUIN500 M2 PO (09:15)
[2018-04-25] MEDS ORDERED: MUCINEX ER600 MG PO (09:15)
[2018-04-25] MEDS ORDERED: LOPRESSOR25 MG PO (09:15)
[2018-04-25] MEDS ORDERED: PREDNISONE10 MG PO (09:15)
[2018-07-09] MEDS ORDERED: HUMALOG100 UNIT/1 SQ (06:44)
[2018-07-11] MEDS ORDERED: PREDNISONE10 MG PO (09:43)
[2018-07-11] MEDS ORDERED: DOXYCYCLINE100 M3 PO (09:43)
[2018-07-11] MEDS ORDERED: LANTUS SOL100 UNIT/1 SC (09:43)
== END 2018-04-25 09:52 | disposition home or self-care (01) | DRG 871 ==
LOC: ED 19:08 → EDHOLD 20:58 → 5E 21:14
PROVIDERS: Family Medicine; Physician Assistant; Student in an Organized Health Care Education/Training Program
DX: A41.9 Sepsis, unspecified organism (principal); J96.21 Acute and chronic respiratory failure with hypoxia; J18.9 Pneumonia, unspecified organism; J44.0 Chronic obstructive pulmonary disease with (acute) lower respiratory infection; J44.1 Chronic obstructive pulmonary disease with (acute) exacerbation; E87.1 Hypo-osmolality and hyponatremia; D64.9 Anemia, unspecified; E11.65 Type 2 diabetes mellitus with hyperglycemia; J30.2 Other seasonal allergic rhinitis; E55.9 Vitamin D deficiency, unspecified; R65.20 Severe sepsis without septic shock; E78.5 Hyperlipidemia, unspecified; I10 Essential (primary) hypertension; M19.90 Unspecified osteoarthritis, unspecified site; Z88.0 Allergy status to penicillin; Z79.4 Long term (current) use of insulin; Z79.899 Other long term (current) drug therapy; Z90.49 Acquired absence of other specified parts of digestive tract; Z87.891 Personal history of nicotine dependence; Z82.5 Family history of asthma and other chronic lower respiratory diseases; Z81.1 Family history of alcohol abuse and dependence; Z82.49 Family history of ischemic heart disease and other diseases of the circulatory system; Z83.3 Family history of diabetes mellitus; Z83.79 Family history of other diseases of the digestive system; Z85.46 Personal history of malignant neoplasm of prostate

== ENCOUNTER → 2018-05-05 | Outpatient (CLI) | payer MEDICARE, OTHER ==
[~2018-05-05] MED LIST changes: +DALIRESP500 MC1 PO; +GLIPIZIDE5 MG PO; +HUMALOG100 UNIT/1 SQ; +LOPRESSOR25 MG PO; +MUCINEX ER600 MG PO
== END | disposition home or self-care (01) ==
LOC: RESCLI 03:30
DX: J41.1 Mucopurulent chronic bronchitis (principal); J96.11 Chronic respiratory failure with hypoxia; I10 Essential (primary) hypertension; C61 Malignant neoplasm of prostate; E78.00 Pure hypercholesterolemia, unspecified; E11.42 Type 2 diabetes mellitus with diabetic polyneuropathy; J30.2 Other seasonal allergic rhinitis; E66.01 Morbid (severe) obesity due to excess calories; Z79.4 Long term (current) use of insulin; Z79.899 Other long term (current) drug therapy; Z88.0 Allergy status to penicillin; Z87.891 Personal history of nicotine dependence

== ENCOUNTER → 2018-06-09 | Outpatient (CLI) | payer MEDICARE, OTHER | END | disposition home or self-care (01) | LOC: RESCLI 02:39 | DX: C61 Malignant neoplasm of prostate (principal); I10 Essential (primary) hypertension; I25.10 Atherosclerotic heart disease of native coronary artery without angina pectoris; E11.42 Type 2 diabetes mellitus with diabetic polyneuropathy; E78.00 Pure hypercholesterolemia, unspecified; J96.11 Chronic respiratory failure with hypoxia; J44.9 Chronic obstructive pulmonary disease, unspecified; J30.2 Other seasonal allergic rhinitis; E55.9 Vitamin D deficiency, unspecified; E66.01 Morbid (severe) obesity due to excess calories; Z79.4 Long term (current) use of insulin; Z87.891 Personal history of nicotine dependence; Z88.0 Allergy status to penicillin ==

== ENCOUNTER → 2018-06-15 | Outpatient (CLI) | payer MEDICARE, OTHER | END | disposition home or self-care (01) | LOC: RESCLI 01:23 | DX: I10 Essential (primary) hypertension (principal); E66.01 Morbid (severe) obesity due to excess calories; J44.1 Chronic obstructive pulmonary disease with (acute) exacerbation; E11.42 Type 2 diabetes mellitus with diabetic polyneuropathy; E78.5 Hyperlipidemia, unspecified; J30.2 Other seasonal allergic rhinitis; Z79.4 Long term (current) use of insulin; Z79.899 Other long term (current) drug therapy; Z88.0 Allergy status to penicillin; Z87.891 Personal history of nicotine dependence ==

== ENCOUNTER → 2018-07-26 | Outpatient (CLI) | payer MEDICARE, OTHER | END | disposition home or self-care (01) | LOC: RESCLI 04:19 | DX: J44.1 Chronic obstructive pulmonary disease with (acute) exacerbation (principal); E11.42 Type 2 diabetes mellitus with diabetic polyneuropathy; J96.11 Chronic respiratory failure with hypoxia; E55.9 Vitamin D deficiency, unspecified; I10 Essential (primary) hypertension; E78.5 Hyperlipidemia, unspecified; J30.2 Other seasonal allergic rhinitis; Z53.20 Procedure and treatment not carried out because of patient's decision for unspecified reasons; Z79.899 Other long term (current) drug therapy; Z87.891 Personal history of nicotine dependence; Z88.0 Allergy status to penicillin ==

== ENCOUNTER → 2018-09-05 | Outpatient (CLI) | payer MEDICARE, OTHER | END | disposition home or self-care (01) | LOC: MRI 08:32 | DX: S83.411A Sprain of medial collateral ligament of right knee, initial encounter (principal); S83.241A Other tear of medial meniscus, current injury, right knee, initial encounter; M25.461 Effusion, right knee; M17.11 Unilateral primary osteoarthritis, right knee; X58.XXXA Exposure to other specified factors, initial encounter; Y93.89 Activity, other specified; Y92.89 Other specified places as the place of occurrence of the external cause; Y99.8 Other external cause status ==

== ENCOUNTER → 2018-11-23 | Outpatient (CLI) | payer MEDICARE, OTHER ==
[~2018-11-23] MED LIST changes: +BUSPAR5 MG PO; +CETIRIZINE HYDR10 MG PO; +Ipratropium Brom3 ML INH; +LASIX20 MG PO; +LISINOPRIL20 MG PO; +RISPERDAL0.5 MG PO; +RISPERDAL1 M1 PO; +RISPERIDONE1 MG PO; +RISPERIDONE2 M2 PO; +Vitamin D PO
== END | disposition home or self-care (01) ==
LOC: RESCLI 01:53
DX: J44.1 Chronic obstructive pulmonary disease with (acute) exacerbation (principal); E78.5 Hyperlipidemia, unspecified; M19.90 Unspecified osteoarthritis, unspecified site; E11.9 Type 2 diabetes mellitus without complications; E66.01 Morbid (severe) obesity due to excess calories; Z79.899 Other long term (current) drug therapy; Z88.0 Allergy status to penicillin; Z87.891 Personal history of nicotine dependence

== ENCOUNTER → 2019-02-08 | Outpatient (CLI) | payer MEDICARE, OTHER | END | disposition home or self-care (01) | LOC: RESCLI 02:09 | DX: E78.5 Hyperlipidemia, unspecified (principal); J96.11 Chronic respiratory failure with hypoxia; E11.42 Type 2 diabetes mellitus with diabetic polyneuropathy; J44.1 Chronic obstructive pulmonary disease with (acute) exacerbation; E55.9 Vitamin D deficiency, unspecified; J44.9 Chronic obstructive pulmonary disease, unspecified; I11.0 Hypertensive heart disease with heart failure; I50.32 Chronic diastolic (congestive) heart failure; E66.01 Morbid (severe) obesity due to excess calories; F33.41 Major depressive disorder, recurrent, in partial remission; I25.10 Atherosclerotic heart disease of native coronary artery without angina pectoris; J30.2 Other seasonal allergic rhinitis; Z79.4 Long term (current) use of insulin; Z79.899 Other long term (current) drug therapy; Z87.891 Personal history of nicotine dependence ==

== ENCOUNTER → 2019-05-09 | Outpatient (CLI) | payer MEDICARE, OTHER | END | disposition home or self-care (01) | LOC: RESCLI 08:11 → LAB 08:11 | DX: J41.1 Mucopurulent chronic bronchitis (principal); J96.11 Chronic respiratory failure with hypoxia; C61 Malignant neoplasm of prostate; E78.00 Pure hypercholesterolemia, unspecified; E11.42 Type 2 diabetes mellitus with diabetic polyneuropathy; J30.2 Other seasonal allergic rhinitis; I25.10 Atherosclerotic heart disease of native coronary artery without angina pectoris; E55.9 Vitamin D deficiency, unspecified; E66.01 Morbid (severe) obesity due to excess calories; E78.5 Hyperlipidemia, unspecified; I11.0 Hypertensive heart disease with heart failure; I50.32 Chronic diastolic (congestive) heart failure; F33.41 Major depressive disorder, recurrent, in partial remission; Z79.899 Other long term (current) drug therapy; Z79.4 Long term (current) use of insulin ==

== ENCOUNTER → 2019-06-28 | Outpatient (CLI) | payer MEDICARE, OTHER ==
[2019-06-28 09:57] LABS: HEMATOCRIT 43.6 % (42.0-52.0); MEAN CELL VOLUME 81.6 fl (80.0-94.0); MEAN CORPUSCULAR HGB 26.2 pg (27.0-31.0); MEAN CORPUSCULAR HGB CONC 32.1 g/dl (33.0-37.0); MEAN PLATELET VOLUME 11.1 fl (9.6-12.3); PLATELET COUNT AUTOMATED 268 10*3/uL (130-400); RED BLOOD COUNT 5.34 10*6/uL (4.50-5.90); RED CELL DISTRI WIDTH 13.7 % (0-14.5); WHITE BLOOD COUNT 22.8 10*3/uL (4.8-10.8)
[2019-06-28 10:17] LABS: ALBUMIN 3.8 gm/dl (3.1-4.5); ALKALINE PHOSPHATASE 79 U/L (45-117); BUN 25 mg/dl (7-24); CHLORIDE 100 mmol/L (98-107); CREATININE 0.91 mg/dL (0.70-1.30); POTASSIUM 3.5 mmol/L (3.5-5.1); SGOT/AST 11 IU/L (3-35); SGPT/ALT 25 U/L (12-78); SODIUM 138 mmol/L (136-145); TOTAL PROTEIN 7.6 gm/dL (6.4-8.2)
[2019-06-28 10:35] LABS: ATYPICAL LYMPHS 7 % (0-0); BASOPHILS 5 % (0-1); PLATELET SUFFICIENCY NORMAL (NORMAL); TOTAL CELLS COUNTED 100 #CELLS
[2019-06-29 07:08] LABS: HEPATITIS B SURFACE AG Negative (Negative)
[2019-06-29 11:09] LABS: MICRO ALBUMIN/CRE RATIO <16.7 (0.0-30.0)
== END | disposition home or self-care (01) ==
LOC: RESCLI 00:42
PROVIDERS: Internal Medicine
DX: Z12.11 Encounter for screening for malignant neoplasm of colon (principal); I11.0 Hypertensive heart disease with heart failure; E11.42 Type 2 diabetes mellitus with diabetic polyneuropathy; E55.9 Vitamin D deficiency, unspecified; E78.5 Hyperlipidemia, unspecified; I50.32 Chronic diastolic (congestive) heart failure; J44.9 Chronic obstructive pulmonary disease, unspecified; E66.01 Morbid (severe) obesity due to excess calories; B02.9 Zoster without complications; Z79.899 Other long term (current) drug therapy; Z87.891 Personal history of nicotine dependence; Z88.0 Allergy status to penicillin

== ENCOUNTER → 2019-08-02 | Outpatient (CLI) | payer MEDICARE, OTHER ==
[2019-08-02 11:18] LABS: HEMATOCRIT 42.3 % (42.0-52.0); HEMOGLOBIN 13.5 g/dl (14.0-18.0); MEAN CORPUSCULAR HGB 26.2 pg (27.0-31.0); MEAN CORPUSCULAR HGB CONC 31.9 g/dl (33.0-37.0); MEAN PLATELET VOLUME 11.1 fl (9.6-12.3); PLATELET COUNT AUTOMATED 227 10*3/uL (130-400); RED BLOOD COUNT 5.16 10*6/uL (4.50-5.90); RED CELL DISTRI WIDTH 14.2 % (0-14.5); WHITE BLOOD COUNT 15.8 10*3/uL (4.8-10.8)
[2019-08-02 11:37] LABS: PLATELET SUFFICIENCY NORMAL (NORMAL); TOTAL CELLS COUNTED 100 #CELLS
[2019-08-02 11:41] LABS: BASOPHILS 3 % (0-1)
== END | disposition home or self-care (01) ==
LOC: RESCLI 10:05
PROVIDERS: Student in an Organized Health Care Education/Training Program
DX: J44.1 Chronic obstructive pulmonary disease with (acute) exacerbation (principal); I11.0 Hypertensive heart disease with heart failure; I50.32 Chronic diastolic (congestive) heart failure; E11.42 Type 2 diabetes mellitus with diabetic polyneuropathy; D72.829 Elevated white blood cell count, unspecified; J44.9 Chronic obstructive pulmonary disease, unspecified; E66.01 Morbid (severe) obesity due to excess calories; E55.9 Vitamin D deficiency, unspecified; E78.5 Hyperlipidemia, unspecified; F41.9 Anxiety disorder, unspecified; G47.00 Insomnia, unspecified; Z79.899 Other long term (current) drug therapy; Z79.4 Long term (current) use of insulin; Z90.89 Acquired absence of other organs; Z88.0 Allergy status to penicillin; Z68.38 Body mass index [BMI] 38.0-38.9, adult

== ENCOUNTER → 2019-08-08 | Outpatient (CLI) | payer MEDICARE, OTHER | END | disposition home or self-care (01) | LOC: CT 07:43 | DX: K57.90 Diverticulosis of intestine, part unspecified, without perforation or abscess without bleeding (principal); K80.80 Other cholelithiasis without obstruction ==

== ENCOUNTER 2019-08-21 01:46 | Inpatient (IN) | payer MEDICARE, OTHER ==
[~2019-08-21] VITALS: Ht 177.8 cm; Wt 118.4 kg
[2019-08-21 02:13] LABS: HEMATOCRIT 40.3 % (42.0-52.0); HEMOGLOBIN 12.9 g/dl (14.0-18.0); MEAN CELL VOLUME 82.8 fl (80.0-94.0); MEAN CORPUSCULAR HGB 26.5 pg (27.0-31.0); MEAN PLATELET VOLUME 11.7 fl (9.6-12.3); PLATELET COUNT AUTOMATED 176 10*3/uL (130-400); RED BLOOD COUNT 4.87 10*6/uL (4.50-5.90); RED CELL DISTRI WIDTH 14.4 % (0-14.5); WHITE BLOOD COUNT 24.8 10*3/uL (4.8-10.8)
[2019-08-21 02:32] LABS: ALBUMIN 3.5 gm/dl (3.1-4.5); ALKALINE PHOSPHATASE 73 U/L (45-117); BUN 25 mg/dl (7-24); CHLORIDE 99 mmol/L (98-107); CREATININE 1.24 mg/dL (0.70-1.30); POTASSIUM 3.8 mmol/L (3.5-5.1); SGOT/AST 12 IU/L (3-35); SGPT/ALT 24 U/L (12-78); SODIUM 136 mmol/L (136-145)
[2019-08-21 02:34] LABS: TOTAL CELLS COUNTED 100 #CELLS
[2019-08-21 02:35] LABS: PLATELET SUFFICIENCY NORMAL (NORMAL)
[2019-08-21 02:38] LABS: TROPONIN I < 0.015 ng/ml (<0.045)
[2019-08-21 03:36] VITALS: BP 149/68
--- NOTE | 2019-08-21 03:36 | NUR ---
A 68, admitted to , under the services of GOOD Rhodes DO with a diagnosis of COMMUNITY AQUIRED PNA. COPD EXACERBATION. Chief complaint is SOB. Patient arrived via ambulatory from ER. Monitor applied. Initial assessment completed. Vital signs taken and recorded. GOOD RHODES DO notified of admission to the unit. Orders received. See assessment for past medical history, medications and allergies. Patient and/or family oriented to unit. [address] visitation policy reviewed. Clothing/patient valuable form completed. JERONIMO VEGA
[2019-08-21 04:00] VITALS: BP 149/68
--- NOTE | 2019-08-21 05:34 | NUR ---
DR. DANIELS NOTIFIED OF PT'S LACTIC ACID OF 3.3. NO ORDERS AT THIS TIME.
--- NOTE | 2019-08-21 06:42 | NUR ---
ATTEMPTED TO NOTIFY DR OZUNA OF CONSULT NO ANSWER
[2019-08-21 08:00] VITALS: BP 132/62
[2019-08-21] MEDS ORDERED: HYDROXYZINE HCL25 MG PO (08:31)
[2019-08-21 12:00] VITALS: BP 162/72
--- NOTE | 2019-08-21 13:30 | NUR ---
Occupational therapy orders received and OT evaluation completed in full on floor four. Patient precautions include 4LO2 and SOB. Per OT evaluation, OT recommends home with HH SN, OT, and PT to address at home needs. Patient is evaluation only at this time secondary to independence with ADLs, mobility, and transfers. Patient presented with good strength and safety. Patient concerned about completing stairs at home, defer to PT. [place] complexity [place], [id number]. Thank you for the referral. Margi Valdes, OTR/L
[2019-08-21 16:00] VITALS: BP 138/81
[2019-08-21 16:57] LABS: ABG BASE EXCESS -0.1 mmol/L (-2.0-2.0); ARTERIAL BLOOD GAS PH 7.364 (7.35-7.45)
--- NOTE | 2019-08-21 17:20 | NUR ---
DR. DANIELS NOTIFIED OF BGM RESULT.
[2019-08-21 20:00] VITALS: BP 133/52
[2019-08-22] VITALS: BP 143/58
[2019-08-22 06:34] LABS: HEMATOCRIT 39.8 % (42.0-52.0); HEMOGLOBIN 12.4 g/dl (14.0-18.0); MEAN CELL VOLUME 83.6 fl (80.0-94.0); MEAN CORPUSCULAR HGB 26.1 pg (27.0-31.0); MEAN CORPUSCULAR HGB CONC 31.2 g/dl (33.0-37.0); MEAN PLATELET VOLUME 11.7 fl (9.6-12.3); PLATELET COUNT AUTOMATED 193 10*3/uL (130-400); RED BLOOD COUNT 4.76 10*6/uL (4.50-5.90); RED CELL DISTRI WIDTH 14.4 % (0-14.5); WHITE BLOOD COUNT 22.2 10*3/uL (4.8-10.8)
[2019-08-22 06:55] LABS: BUN 22 mg/dl (7-24); CHLORIDE 101 mmol/L (98-107); CREATININE 0.85 mg/dL (0.70-1.30); PHOSPHOROUS 3.6 mg/dL (2.5-4.9); POTASSIUM 4.1 mmol/L (3.5-5.1); SODIUM 137 mmol/L (136-145)
[2019-08-22 07:10] LABS: ATYPICAL LYMPHS 4 % (0-0); BASOPHILS 1 % (0-1); PLATELET SUFFICIENCY NORMAL (NORMAL); TOTAL CELLS COUNTED 100 #CELLS
[2019-08-22 08:00] VITALS: BP 116/71
[2019-08-22 12:10] VITALS: BP 120/75
--- NOTE | 2019-08-22 14:42 | NUR ---
PHYSICAL THERAPY Umm completed pt moderate complexity level 44213 recomend Home with w HH or Out-pt services for pulmonary follow up. Pt states he feels he is at his baseline and uses 3L of oxygen at home. Pt independent with transfers and ambulation with no device. Full report to follow Leonor Yo PT
[2019-08-22 16:00] VITALS: BP 121/63
[2019-08-22 20:00] VITALS: BP 127/67
[2019-08-23] VITALS: BP 141/67
--- NOTE | 2019-08-23 01:21 | NUR ---
24 HR chart check completed.
[2019-08-23 08:00] VITALS: BP 130/57
[2019-08-23] MEDS ORDERED: DOXYCYCLINE100 M3 PO (11:19)
[2019-08-23] MEDS ORDERED: PREDNISONE10 MG PO (11:19)
[2019-08-23 12:00] VITALS: BP 132/68
--- NOTE | 2019-08-23 12:14 | NUR ---
REMOVED PT IV AT THIS TIME. PT IS LEAVING THE FLOOR AND HAS HIS OXYGEN ON AND ALL OF HIS BELONGINGS.
== END 2019-08-23 12:26 | disposition home or self-care (01) | DRG 871 ==
LOC: ED 01:46 → 4E 02:54 → EDHOLD 02:54 → 4E 03:15 → 5E 18:35
PROVIDERS: Emergency Medicine; Internal Medicine Critical Care Medicine; Student in an Organized Health Care Education/Training Program; ADMIT Emergency Medicine
DX: A41.9 Sepsis, unspecified organism (principal); J18.9 Pneumonia, unspecified organism; J96.21 Acute and chronic respiratory failure with hypoxia; J96.22 Acute and chronic respiratory failure with hypercapnia; J44.1 Chronic obstructive pulmonary disease with (acute) exacerbation; E44.0 Moderate protein-calorie malnutrition; J44.0 Chronic obstructive pulmonary disease with (acute) lower respiratory infection; I10 Essential (primary) hypertension; E11.9 Type 2 diabetes mellitus without complications; J30.2 Other seasonal allergic rhinitis; R65.20 Severe sepsis without septic shock; E78.5 Hyperlipidemia, unspecified; E55.9 Vitamin D deficiency, unspecified; D64.9 Anemia, unspecified; E66.09 Other obesity due to excess calories; G47.33 Obstructive sleep apnea (adult) (pediatric); F34.1 Dysthymic disorder; F41.1 Generalized anxiety disorder; F32.9 Major depressive disorder, single episode, unspecified; Z99.81 Dependence on supplemental oxygen; Z68.37 Body mass index [BMI] 37.0-37.9, adult; Z88.0 Allergy status to penicillin; Z88.8 Allergy status to other drugs, medicaments and biological substances; Z79.899 Other long term (current) drug therapy; Z85.46 Personal history of malignant neoplasm of prostate; Z87.891 Personal history of nicotine dependence; Z79.4 Long term (current) use of insulin; Z90.49 Acquired absence of other specified parts of digestive tract; Z87.2 Personal history of diseases of the skin and subcutaneous tissue; Z83.3 Family history of diabetes mellitus; Z81.1 Family history of alcohol abuse and dependence; Z82.5 Family history of asthma and other chronic lower respiratory diseases; Z82.49 Family history of ischemic heart disease and other diseases of the circulatory system

== ENCOUNTER 2019-09-19 15:31 | Inpatient (IN) | payer MEDICARE, OTHER ==
[~2019-09-19] VITALS: Ht 152.4 cm; Wt 118.4 kg
[~2019-09-19 15:31] MED LIST changes: +HYDROXYZINE HCL25 MG PO
[2019-09-19 15:39] VITALS: BP 134/86
[2019-09-19 16:00] LABS: BASO # 0.2 10*3/uL (0.0-0.1); BASO % 1.5 % (0.0-1.0); EOS # 1.1 10*3/uL (0.0-0.4); EOS % 9.7 % (1.0-4.0); HEMATOCRIT 40.7 % (42.0-52.0); LYMPH # 2.4 10*3/uL (1.3-4.4); LYMPH % 20.3 % (27.0-41.0); MEAN CELL VOLUME 83.7 fl (80.0-94.0); MEAN CORPUSCULAR HGB 26.7 pg (27.0-31.0); MEAN CORPUSCULAR HGB CONC 31.9 g/dl (33.0-37.0); MEAN PLATELET VOLUME 11.4 fl (9.6-12.3); MONO # 0.9 10*3/uL (0.1-1.0); NEUT # 7.1 10*3/uL (2.3-7.9); NEUT % 59.9 % (47.0-73.0); PLATELET COUNT AUTOMATED 198 10*3/uL (130-400); RED BLOOD COUNT 4.86 10*6/uL (4.50-5.90); RED CELL DISTRI WIDTH 13.8 % (0-14.5); WHITE BLOOD COUNT 11.8 10*3/uL (4.8-10.8)
[2019-09-19 16:17] LABS: ALBUMIN 3.9 gm/dl (3.1-4.5); ALKALINE PHOSPHATASE 85 U/L (45-117); BUN 12 mg/dl (7-24); CHLORIDE 91 mmol/L (98-107); CREATININE 0.93 mg/dL (0.70-1.30); POTASSIUM 3.7 mmol/L (3.5-5.1); SGOT/AST 10 IU/L (3-35); SGPT/ALT 28 U/L (12-78); SODIUM 132 mmol/L (136-145); TOTAL PROTEIN 7.4 gm/dL (6.4-8.2)
[2019-09-19 16:23] LABS: TROPONIN I < 0.015 ng/ml (<0.045)
[2019-09-19 18:45] VITALS: BP 138/68
--- NOTE | 2019-09-19 18:45 | NUR ---
Time: 1844 A 68 year old MALE admitted to 5E under services of CARA NUNES DO, Pt. arrived via bed from ER. Chief complaint: INCREASED SHORTNESS OF BREATH. MELANI JEAN
--- NOTE | 2019-09-19 18:50 | NUR ---
MEDS RECONCILED AT BEDSIDE WITH PT'S AND LIST.
--- NOTE | 2019-09-19 19:17 | NUR ---
PATIENT AND WISH FOR PATIENT TO BE A FULL CODE. DR. HILL AWARE AND STATUS CHANGED.
[2019-09-20] VITALS: BP 157/84
[2019-09-20 06:15] LABS: BASO % 0.2 % (0.0-1.0); EOS % 0.1 % (1.0-4.0); HEMATOCRIT 39.2 % (42.0-52.0); HEMOGLOBIN 12.6 g/dl (14.0-18.0); LYMPH % 7.3 % (27.0-41.0); MEAN CELL VOLUME 81.2 fl (80.0-94.0); MEAN CORPUSCULAR HGB 26.1 pg (27.0-31.0); MEAN CORPUSCULAR HGB CONC 32.1 g/dl (33.0-37.0); MEAN PLATELET VOLUME 11.6 fl (9.6-12.3); MONO # 0.3 10*3/uL (0.1-1.0); MONO % 2.6 % (3.0-9.0); NEUT # 11.8 10*3/uL (2.3-7.9); PLATELET COUNT AUTOMATED 204 10*3/uL (130-400); RED BLOOD COUNT 4.83 10*6/uL (4.50-5.90); RED CELL DISTRI WIDTH 13.5 % (0-14.5); WHITE BLOOD COUNT 13.2 10*3/uL (4.8-10.8)
[2019-09-20 06:24] LABS: BUN 20 mg/dl (7-24); CHLORIDE 91 mmol/L (98-107); CHOLESTEROL 159 mg/dL (<200); CREATININE 1.14 mg/dL (0.70-1.30); HDL CHOLESTEROL 67 mg/dl (40-60); LDL CHOLESTEROL 78 mg/dL (9-159); PHOSPHOROUS 3.1 mg/dL (2.5-4.9); POTASSIUM 4.2 mmol/L (3.5-5.1); SODIUM 127 mmol/L (136-145); TRIGLYCERIDES 68 mg/dl (<150); VLDL CHOLESTEROL 14 mg/dL (6-40)
[2019-09-20 06:30] LABS: THYROID STIM HORMONE (HS) 0.451 uIU/ml (0.358-4.75)
[2019-09-20 07:29] LABS: VITAMIN D, 25-HYDROXY 32.9 ng/mL (30-100)
[2019-09-20 08:00] VITALS: BP 145/72
--- NOTE | 2019-09-20 09:00 | NUR ---
Betting Agency Manager in to talk to patient. Patient states lives at home with . There are 2 steps in the home. Physician: riley hoskins Pharmacy: [facility] Home health services: none Patient's level of ADLs: INDEPENDENT Patient has working utilities: all working DME: home oxygen, portable tanks, nebulizer from [employer] Follow-up physician's appointment after d/c: will be made by hospitalist nurse director upon discharge Does patient want to access PORTAL?: no Discharge plan discussed with patient, he states he lives at home with , he is independent in adls and ambulation, he states he will return home when medically stable and denies any home needs, case management will follow. KATY KOROMA
--- NOTE | 2019-09-20 09:57 | NUR ---
Palliative care referral received and faxed to [facility] and [facility] nurse notified.
[2019-09-20 12:00] VITALS: BP 130/56
--- NOTE | 2019-09-20 13:45 | NUR ---
PHYSICAL THERAPY Attempted to see pt at the bedside for evaluation per pt "feeling much better now" resintin bed comfortably no distress with resp status. Pt declining therapy at this time wants to "rest" but agreeable to therapy in the AM will follow Leonor Yo PT
--- NOTE | 2019-09-20 14:30 | NUR ---
Occupational therapy orders received and chart reviewed. Patient was supine in bed upon arrival. Patient refusing an OT evaluation at this time, stating he would prefer an eval in the morning. Will follow up. Thank you. Margi Valdes OTR/L
[2019-09-20 16:00] VITALS: BP 128/66
--- NOTE | 2019-09-20 19:32 | NUR ---
DR BENEDICT NOTIFIED OF DNR-[facility] PAPER WORK NEEDING PHYSICIAN SIGNATURE. STATES HE WILL BE UP.
[2019-09-20 20:00] VITALS: BP 152/69
--- NOTE | 2019-09-20 20:26 | NUR ---
SPOKE WITH DR BENEDICT REGARDING PT BLOOD SUGAR 459. STATES TO GIVE PT THE 70 UNITS OF LANTUS ORDERED, AND INSTEAD OF 22 OF HUMALOG PER SCALE, TO GIVE ONLY 20.
--- NOTE | 2019-09-20 22:43 | NUR ---
24 HOUR CHART CHECK COMPLETE.
[2019-09-21] VITALS: BP 141/62
[2019-09-21 08:08] VITALS: BP 140/66
--- NOTE | 2019-09-21 09:00 | NUR ---
case management visits with patient, he states he will return home when medically stable. community palliative care will meet with patient and when he is discharged, case management will follow
--- NOTE | 2019-09-21 09:30 | NUR ---
Nutritional Support Services Note: f/u done with pt on 1800 jose diet. Pt is self aware of diet and states that his cooks meals for him and he continues to eat three meals a day plus snacks. Pt asked questions about appropriate snacks to have. Continued to encourage adequate nutrition. ELENA Pereira media intern
[2019-09-21] MEDS ORDERED: AVPAK AZITHROM250 MG PO (10:23)
[2019-09-21] MEDS ORDERED: PREDNISONE10 MG PO (10:23)
[2019-09-21] MEDS ORDERED: OMNICEF300 MG PO (10:23)
--- NOTE | 2019-09-21 10:35 | NUR ---
PHYSICAL THERAPY Pt seen ambulating in hallway independently, returned to room and in/out of bed independently. States he is going home today and has no concerns. Pt screened, no PT eval indicated going home today will discontinue orders Leonor Yo PT
--- NOTE | 2019-09-21 11:00 | NUR ---
Discharge instructions reviewed with patient. Patient receptive and verbalizes understanding. Follow-up care arranged. Written instructions given to patient. IV REMOVED, DRESSING APPLIED. PT HAS NO QUESTIONS ABOUT DISCHARGE AT THIS TIME. DISCHARGE TO HOME, WILL BE TO UNDERWRITING ASSISTANT PETERSON PRINGLE
--- NOTE | 2019-09-21 11:48 | NUR ---
Patient seen fully dressed and ambulating in the hallway. He is to be discharged today and hand no further therapy needs. Fide Shaffer OTR/l
--- NOTE | 2019-09-21 12:15 | NUR ---
PT DISCHARGED HOME
== END 2019-09-21 12:15 | disposition home or self-care (01) | DRG 191 ==
LOC: ED 15:31 → 5E 17:13 → EDHOLD 17:13 → 5E 17:30
PROVIDERS: Family Medicine; Internal Medicine; ADMIT Internal Medicine
DX: J44.1 Chronic obstructive pulmonary disease with (acute) exacerbation (principal); E87.1 Hypo-osmolality and hyponatremia; Z68.43 Body mass index [BMI] 50.0-59.9, adult; Z66 Do not resuscitate; Z51.5 Encounter for palliative care; E11.65 Type 2 diabetes mellitus with hyperglycemia; D64.9 Anemia, unspecified; M19.90 Unspecified osteoarthritis, unspecified site; E78.5 Hyperlipidemia, unspecified; E55.9 Vitamin D deficiency, unspecified; E66.9 Obesity, unspecified; F41.9 Anxiety disorder, unspecified; D72.829 Elevated white blood cell count, unspecified; Z88.0 Allergy status to penicillin; Z88.8 Allergy status to other drugs, medicaments and biological substances; Z87.891 Personal history of nicotine dependence; Z82.5 Family history of asthma and other chronic lower respiratory diseases; Z83.3 Family history of diabetes mellitus; Z82.49 Family history of ischemic heart disease and other diseases of the circulatory system; Z85.46 Personal history of malignant neoplasm of prostate; Z79.4 Long term (current) use of insulin; Z79.899 Other long term (current) drug therapy

== ENCOUNTER → 2019-10-12 | Outpatient (CLI) | payer MEDICARE, OTHER ==
[~2019-10-12] MED LIST changes: +AVPAK AZITHROM250 MG PO; +OMNICEF300 MG PO
== END | disposition home or self-care (01) ==
LOC: RESCLI 00:34
DX: I11.0 Hypertensive heart disease with heart failure (principal); I50.32 Chronic diastolic (congestive) heart failure; I27.20 Pulmonary hypertension, unspecified; I25.10 Atherosclerotic heart disease of native coronary artery without angina pectoris; E11.42 Type 2 diabetes mellitus with diabetic polyneuropathy; E78.5 Hyperlipidemia, unspecified; E55.9 Vitamin D deficiency, unspecified; J44.9 Chronic obstructive pulmonary disease, unspecified; J30.2 Other seasonal allergic rhinitis; J44.1 Chronic obstructive pulmonary disease with (acute) exacerbation; C61 Malignant neoplasm of prostate; B02.9 Zoster without complications; G47.00 Insomnia, unspecified; F33.41 Major depressive disorder, recurrent, in partial remission; F41.9 Anxiety disorder, unspecified; M19.90 Unspecified osteoarthritis, unspecified site; Z09 Encounter for follow-up examination after completed treatment for conditions other than malignant neoplasm; Z79.4 Long term (current) use of insulin; Z85.46 Personal history of malignant neoplasm of prostate; Z79.899 Other long term (current) drug therapy; Z88.0 Allergy status to penicillin; Z72.0 Tobacco use

== ENCOUNTER → 2020-01-08 | Outpatient (CLI) | payer MEDICARE, OTHER | END | disposition home or self-care (01) | LOC: RAD 13:35 | DX: J43.9 Emphysema, unspecified (principal) ==